=== PATIENT | male | born 2000 | race Caucasian/White ===

== ENCOUNTER 2025-01-16 17:42 | Emergency (ER) | payer OTHER, SELFPAY ==
[2025-01-16 17:49] VITALS: BP 120/68; PULSE 69; RESP 16; TEMP 36.3; O2SAT 99; BMI 25.2
--- NOTE | 2025-01-16 17:53 | ED_ITS ---
HPI - Skin/Abscess/Foreign Bdy General Time Seen by Provider: 17:54 Date Seen: 01/16/25 Chief complaint: Skin/Abscess/Foreign Body Stated complaint: Post op rash down R leg Time Seen by Provider: 01/16/25 17:53 Source: patient and RN notes reviewed Mode of arrival: ambulatory Limitations: no limitations History of Present Illness HPI narrative: This 24-year-old male is coming in with a rash only affecting his right lower extremity. He had a hamstring repair at [facility] with Dr. Frey on January 06. About 4 days ago he started having a rash on this right leg, it is very itchy. He just recently went back on hydroxyzine, taking 2 tablets up to every [address] Frey, he stated he could take the hydroxyzine or Benadryl. The swelling at the surgical site itself is much improved, he has right lower extremity swelling that is more notable now. He has not noted any fevers, no shortness of breath, no chest symptoms. He has a brace for this leg, uses a sleeve on his leg or has it over clothing like sweat pants. He otherwise is not putting any products on it. Related Data Home Medications ?Medication ?Instructions ?Recorded ?Confirmed hydroxyzine HCl 25 mg tablet 25 mg PO Q6-8H PRN 01/16/25 Allergies Allergy/AdvReac Type Severity Reaction Status Date / Time No Known Drug Allergies Allergy Verified 01/16/25 17:48 Review of Systems Narrative: As per HPI. PFSH PFS Social History Smoking Status: Never smoker How often do you have a drink containing alcohol: never AUDIT-C Alcohol total score: 0 Non-prescribed substance use: denies use Exam Const: Vital Signs, click to edit/add: Vital Signs - 24 hr 01/16/25 17:49 Temperature 97.4 F L Pulse Rate [Pulse Oximeter] 69 Respiratory Rate 16 Blood Pressure [Ri ght Upper Arm] 120/68 Pulse Oximetry 99 Oxygen Delivery Me thod Room Air 24-year-old male is alert, interactive, no apparent distress. He has a surgical wound with Steri-Strips right upper posterior leg, other underlying sutures, this area does not have any excessive erythema. The whole thigh and calf are swollen on this leg. His calf really is not tender when I palpate on the right. He has very prominent small pink to red raised areas that are small, circular, mm in diameter about 2-3, confluent from his right thigh down to his right leg/calf. These almost seem to follow the pattern of his follicles. Lungs are clear, good air entry, no wheezing or crackles, no tachypnea accessory muscle use. Speech is normal. CV regular rate and rhythm, no murmur. Skin on his left leg is unaffected, skin visualized elsewhere unaffected with rash. Documenting provider has reviewed patient's vital signs: yes Course Course ED Course: Reviewed with patient that would stand that something that only his right leg is coming in contact is causing this reaction. 1st and foremost in my mind would be reaction to skin prep but it is a bit delayed in time frame it would seem. His surgery was the 30 in this rash did not start to crop up until about 4 days ago. His roommate has Claritin at home, we discussed the use of adding in Claritin or Zyrtec twice a day for anti itching properties. With the swelling in a recent orthopedic surgery, did discuss ruling out DVT. I do think it would be prudent and will get a venous ultrasound ordered of this leg, he does agree. Will give him a dose of Claritin. Reevaluation(s) Time of Reevaluation #1: 19:43 Reevaluation #1: Reviewed with patient that the preliminary report per the seconds grader is no DVT. Will let him know if the radiologist has anything else additional once the formal read has come through, otherwise will plan to discharge at this time. Reviewed with patient that I cannot help but think that this is maybe some delayed type reaction to prep on the leg. It is only on the skin of the surgical leg. The rash is not anywhere else, he is aware that if it is starting to spread elsewhere that he needs re-evaluation. He did take Keflex and just completed that, again, doubt that this is reaction to Keflex and just 1 leg and no where else. He did ultimately declined the Zyrtec or Claritin here, states he is just going to take it at home as it is cheaper. I think that is fine. He and I discussed infection as an etiology. If he had cellulitis of this extent, would anticipate that he would be sick, febrile, flu carley. Patient's with lambert lulitis are generally ill. This is just an itchy rash with postsurgical swelling. We discussed using cool compresses or ice. I do also wonder if the edema of the leg itself could be giving him some follicular changes. The ?rash? seems to be smaller and not as apparent as your urticarial, almost looks more follicular. We certainly can make medication recommendations to help with the itching, hopefully with swelling going down, time way from the surgery, he will be improving. Vital Signs Vital signs: Initial Vital Signs Temperature 97.4 F L 01/16/25 17:49 Temperature Source Temporal Artery Scan 01/16/25 17:49 Pulse Rate 69 01/16/25 17:49 Pulse Rhythm Regular 01/16/25 17:49 Respiratory Rate 16 01/16/25 17:49 Blood Pressure 120/68 01/16/25 17:49 Blood Pressure Mean 85 01/16/25 17:49 Blood Pressure Position Sitting 01/16/25 17:49 Pulse Oximetry 99 01/16/25 17:49 Oxygen Delivery Method Room Air 01/16/25 17:49 Vital Signs Temperature 97.4 F L 01/16/25 17:49 Pulse Rate 69 01/16/25 17:49 Respiratory Rate 16 01/16/25 17:49 Blood Pressure 120/68 01/16/25 17:49 Pulse Oximetry 99 01/16/25 17:49 Oxygen Delivery Method Room Air 01/16/25 17:49 Temperature 97.4 F L 01/16/25 17:49 Pulse Rate 69 01/16/25 17:49 Respiratory Rate 16 01/16/25 17:49 Blood Pressure 120/68 01/16/25 17:49 Pulse Oximetry 99 01/16/25 17:49 Oxygen Delivery Method Room Air 01/16/25 17:49 Medications Administered Medications: Discontinued Medications Generic Name Dose Route Start Last Admin Trade Name Freq PRN Reason Stop Dose Admin Cetirizine HCl 10 mg 01/16/25 18:14 01/16/25 18:47 Cetirizine Hcl 10 Mg Tablet PO 01/16/25 18:15 Not Given DAILY ONE Loratadine 10 mg 01/16/25 18:15 01/16/25 18:38 Loratadine 10 Mg Tablet PO 01/16/25 18:16 10 mg DAILY ONE Administration MDM - Skin/Abscess/Foreign Bdy Imaging Data Venous US: Attestation: I have reviewed the pertinent imaging results. Radiologist's impression: Patient: LOTTIE FOSTER Facility:?[facility] Patient ID:?[id number] Site Patient ID:?[id number]. Site :?2002 Study:?US-Extremity Right Upper arm venous-01/16/2025 7:47:29 PM Ordering Physician:?Major Solomon Final Report: INDICATION: Swelling, recent hamstring repair TECHNIQUE: Venous duplex ultrasound of the right lower extremity utilizing compression with cummings-scale, color Doppler, and spectral Doppler imaging. COMPARISON: None FINDINGS: There is no sonographic evidence of deep vein thrombosis in the right common femoral, deep femoral, superficial femoral, popliteal, posterior tibial, peroneal, or contralateral common femoral veins. There is no visualized superficial vein thrombosis. The soft tissues are unremarkable. IMPRESSION: No deep vein thrombosis in the right lower extremity. Dictated by Darci Dominguez MD @ 01/16/2025 8:12:54 PM (Electronic Signature) Discharge Plan Discharge Clinical Impression: Swelling of right lower extremity, Rash Patient Disposition: Home, Self-Care Condition: Stable Instructions: Acute Rash (ED) Additional Instructions: Can take Claritin 10 mg twice a day to help with itching. You can continue with the hydroxyzine that you have, 25-50 mg every 6-8 hours as needed for itching. It is possible that this could be a delayed reaction to the prep or possibly coming from the swelling of the extremity itself. There was no evidence of DVT on the ultrasound, I will contact you if the radiologist has anything else additional once this is been formally read. I would try to elevate this leg as much as possible when you are resting. Can use ice packs or cool compresses, that can help decrease itching. If you note the rash is starting to spread elsewhere in your body, do recommend re-evaluation. Activity Detail: Continue with postoperative instructions per your surgeon. Prescriptions: No Action hydroxyzine HCl 25 mg tablet 25 mg PO Q6-8H PRN Follow Up/Referrals: Provider,Not a Local [Primary Care Provider, Family Practice] Stand Alone Forms: [facility] Info Instructions
--- NOTE | 2025-01-16 18:07 | CRLHL7_ITS ---
For Patients: As a result of the Cures Act, medical imaging exams and procedure reports are released immediately into your electronic medical record. You may view this report before your referring provider. If you have questions, please contact your health care provider. INDICATION: Swelling, recent hamstring repair TECHNIQUE: Venous duplex ultrasound of the right lower extremity utilizing compression with cummings-scale, color Doppler, and spectral Doppler imaging. COMPARISON: None FINDINGS: There is no sonographic evidence of deep vein thrombosis in the right common femoral, deep femoral, superficial femoral, popliteal, posterior tibial, peroneal, or contralateral common femoral veins. There is no visualized superficial vein thrombosis. The soft tissues are unremarkable. IMPRESSION: No deep vein thrombosis in the right lower extremity. Dictated by Darci Dominguez MD @ 01/16/2025 8:12:54 PM (Electronically Signed)
--- OUTSIDE RECORDS SUMMARY | 2025-01-16 18:24 | XMS_ITS | Clinical Summary ---
Author Organization [facility] Address [address] [place] [address] Care Team Providers Care Research Laboratory Technician Name Role Phone Angela Marmolejo Primary Care Provider Allergies No known active allergies Medications No known medications Active Problems No known active problems Social History Tobacco Use Types Packs/Day Years Used Date Smoking Tobacco: Never Smokeless Tobacco: Never Alcohol Use Standard Drinks/Week Comments Never 0 (1 standard drink = 0.6 oz pur e alcohol) Sex and Gender Information Value Date Recorded Sex Assigned at Male 05/07/2024 3:48 PM EST Legal Sex Male 1:21 PM EDT Gender Identity Male 05/07/2024 3:55 PM EST Sexual Orientation Not on file Last Filed Vital Signs Vital Sign Reading Time Taken Comments Blood Pressure 105/70 11/21/2018 7:15 PM EDT Pulse 52 11/21/2018 7:15 PM EDT Temperature 36.8 C (98.2 F) 11/21/2018 7:15 PM EDT Respiratory Rate 16 11/21/2018 7:15 PM EDT Oxygen Saturation 100% 11/21/2018 7:15 PM EDT Inhaled Oxygen Concentration - - Weight - - Height - - Body Mass Index - - Plan of Treatment Health Maintenance Due Date Last Done Comments HIV Screening 2002 Hepatitis C Screening 2002 Alcohol/Substance Use Screening 03/10/2024 Depression Screening and Follow-Up 03/10/2024 Social Drivers of Health Leela ual Screening 03/10/2024 DTaP,Tdap,and Td Vaccines (7 - Td or Tdap) 10/27/2024 10/27/2014, 03/17/2008, 03/16/2004, Additional history exists COVID-19 Vaccine (5 - 2024-2 6 season) 2024 02/28/2022, 10/03/2021, 07/31/2020, Additional history exists Influenza Vaccine (#1) 2024 2, 11/18/2019, 04/03/2019, Additional history exists RSV Vaccine (60+ years old a nd patients) (1 - 1-dose 75+ series) 2077 Hepatitis B Vaccines Completed 10/19/2003, 01/12/2003, 2002 Pneumococcal Vaccine: Pediat jarocho (0-5 Years) and At-Risk Patients (6-50 Years) Completed 12/12/2003, 10/19/2003, 04/15/2003, Additional history exists Varicella Vaccines Completed 03/17/2008, 12/12/2003 HPV Vaccines Completed 09/06/2019, 11/29/2016 Meningococcal Vaccine Completed 11/18/2019, 017 [place] [id number] [place] [id number] Care Teams Research Laboratory Technician Relationship Specialty Start Date End Date Angela Marmolejo [address] [place] [phone] PCP - General Pediatrics 11/21/18
--- OUTSIDE RECORDS SUMMARY | 2025-01-16 18:24 | XMS_ITS | Clinical Summary ---
Author Organization [facility] Address [address] [place] [address] Care Team Providers Care Ship Boss Name Role Phone Chuck Sosa MD Primary Care Provider Allergies No known active allergies Immunizations Immunization Administration Dates Next Due DTaP 03/17/2008, 5,06/17/2003,2003,02/21/2003 Hep B (pedi) 10/19/2003,01/12/2003,2002 Hib - 03/16/2004, 4,04/15/2003,2002 IPV 03/17/2008, 5,04/15/2003,2002 Influenza,live,intranasal,tr ivalent (Flumist) 02/03/2013,03/23/2010,01/24/2008 MMR 03/17/2008,03/16/2004 PCV-7 12/12/2003, 4,04/15/2003,2002 Tdap(Adacel) 10/27/2014 Varicella 03/17/2008,12/12/2003 Social History Tobacco Use Types Packs/Day Years Used Date Smoking Tobacco: Never Assessed Sex and Gender Information Value Date Recorded Sex Assigned at Not on file Legal Sex Male 2:26 PM EDT Gender Identity Not on file Sexual Orientation Not on file Last Filed Vital Signs Vital Sign Reading Time Taken Comments Blood Pressure - - Pulse - - Temperature - - Respiratory Rate - - Oxygen Saturation - - Inhaled Oxygen Concentration - - Weight 56.7 kg (125 lb) 11/02/2015 9:24 AM EDT Height 162.6 cm (5' 4) 11/02/2015 9:24 AM EDT Body Mass Index 21.46 11/02/2015 9:24 AM EDT Plan of Treatment Health Maintenance Due Date Last Done Comments Hepatitis C Screening 2002 HPV Vaccine (1 - Male 3-dose series) 2017 DTaP/Tdap/Td (7 - Td or Tdap) 10/27/2024 10/27/2014, 03/17/2008, 03/16/2004, Additional history exists COVID-19 Vaccine ( - season) 2024 Influenza (#1) 2024 02/03/2013, 03/10, 01/24/2008 Zoster (Shingrix) (1 of 2) 2052 03/17/2008, Hep B Completed 10/19/2003, 07/2002, 2002 Pneumococcal Aged Out 12/12/2003, 10/08, 04/15/2003, Additional history exists No longer eligible based on patient's age to complete this topic Hib Completed 03/16/2004, 11/2003, 04/15/2003, Additional history exists Hep A Aged Out No longer eligi ble based on patient's age to complete this topic Meningococcal ACWY Aged Out No longer eligible based on patient's age to complete this topic Care Teams Ship Boss Relationship Specialty Start Date End Date Chuck Sosa MD [address] [place] [id number] PCP - General Family Medicine 08/09/16
--- OUTSIDE RECORDS SUMMARY | 2025-01-16 18:24 | XMS_ITS | Clinical Summary ---
Author Organization [facility] Address [address] [place] [address] Phone Care Team Providers Care Assistant Bookkeeper Name Role Phone Angela Marmolejo MD Primary Care Provider [phone] Chiara Reyna MD Unavailable [phone] Allergies No known active allergies Medications clindamycin (CLEOCIN T) 1 % lotionIndicatio ns:Acne vulgaris Apply a thin amount to entire face twice daily 60 mL 3 09/06/2024 Active tretinoin (RETIN-A) 0.05 % creamIndication s:Acne vulgaris APPLY TO SKIN EVERY NIGHT DIRECTED APPLY A PEA-SIZE AMOUNT TO FACE DAILY. 45 g 3 09/06/2024 Active Active Problems Problem Noted Date Diagnosed Date Acne vulgaris 03/09/2019 08/12/2022 Social History Tobacco Use Types Packs/Day Years Used Date Smoking Tobacco: Never Assessed Education Answer Date Recorded Are you interested in more education? Not on jose a e 07/07/2022 Are you concerned about learning? Not on file 07/07/2022 No 07/07/2022 No 07/07/2022 Digital Access Answer Date Recorded No 08/04/2022 No 08/04/2022 No 08/04/2022 Reliable internet access at home? Not on file 08/04/2022 Device with a working camera? Not on file Sex and Gender Information Value Date Recorded Sex Assigned at Not on file Legal Sex Male 8:59 PM EST Gender Identity Not on file Sexual Orientation Not on file Plan of Treatment Upcoming Encounters Date Type Department Care Team (Ross st Contact Info) Description 09/12/2025 1:00 PM EDT [facility] [address] [place] [address] Dinora Dolan PA-C [address] [place] [address] [email or web address] Maintenance Due Date Last Done Comments DEPRESSION SCREENING 2014 SMOKING Hx and SMOKELESS TOBACCO SCREENING 12/11/2015 MENINGOCOCCAL VACCINES (B) (1 of 2 - Standard) 2018 HPV VACCINES (2 - Male 3-dose series) 10/04/2019 09/06/2019 HEPATITIS C SCREENING 2020 HIV ONE-TIME SCREENING (18-65 YEARS) 2020 INFLUENZA VACCINE (#1) 2024 0, 04/03/2019, 12/11/2017, Additional history exists Adult Td,Tdap Booster 10/27/2024 10/27/2014 COVID-19 VACCINE ( season) 2024 07/09/2020 IPV VACCINES Completed 03/17/2008, 06/08, 04/15/2003, Additional history exists MENINGOCOCCAL VACCINES (ACWY) Completed 11/18/2019 HEPATITIS A VACCINES Aged Out No long er eligible based on patient's age to complete this topic HIB VACCINES Aged Out No longer eligi ble based on patient's age to complete this topic PNEUMOCOCCAL VACCINES (0-49 years) Aged Out No longer eligible based on patient's age to complete this topic Medical Devices Not on file Insurance [facility] [employer] Care Teams Assistant Bookkeeper Relationship Specialty Start Date End Date Angela Marmolejo MD [address] [place] [phone] PCP - General 08/19/22 Chiara Reyna MD [address] [place] [id number] [email or web address] 08/19/22 Additional Source Comments The information contained in this document represents components of the legal health record. It is not the complete legal health record.[facility]
--- OUTSIDE RECORDS SUMMARY | 2025-01-16 18:25 | XMS_ITS | Clinical Summary ---
Author Organization [facility] Address [address] [place] [phone] Phone Care Team Providers Care Camera Repairer Name Role Phone Angela Marmolejo MD Primary Care Provider [phone] Allergies No known active allergies Medications clindamycin 1 % lotion APPLY A THIN LAYER TO FACE TWICE A DAY 2 06/03/2019 Active tretinoin 0.05 % cream APPLY PEA SIZED AMOUNT TO ENTIRE FACE AT BEDTIME DIRECTED 03/13/2020 Active Active Problems No known active problems Immunizations Immunization Administration Dates Next Due DTaP 03/17/2008, 5,06/17/2003,06/16,04/15/2003,04/15/2003,02/21/2003 ,02/21/2003 DTaP / HiB 03/16/2004 H1N1 Nasal 12/28/2008 HPV Vaccine 9 Valent 09/06/2019,11/29/2016 Hep B, ped/adol 10/19/2003, 4,01/12/2003,01/12,2002,2002 Hib (HbOC) 03/16/2004, 4,04/15/2003,02/21 Hib (PRP-T) 06/17/2003,04/15/2003,02/21/2003 IPV 03/17/2008, 5,06/22/2004,04/15,04/15/2003,02/21/2003,02/21/2003 Influenza 12/12/2004 Influenza, injectable, MDCK, preservative free, quadrivalent 02/28/2022 Influenza, injectable, quadr ivalent, preservative free 11/18/2019,04/03/2019,12/11/2017,03/27 Influenza, injectable, trivalent 01/03/2006,12/09,12/12/2004 Influenza, intranasal, quadrivalent 01/23/2015 Influenza, intranasal, trivalent 02/03/2013,03/10,01/24/2008 MMR 03/17/2008,03/16/2004,03/16/2004 Meningococcal B Bexsero 09/24/2021,08/22/2021 Meningococcal Conj (Menactra) MCV4P 11/18/2019,0 11/29/2016 Pneumococcal Conjugate 12/12/2003,2003,10/19/2003,10/18,04/15/2003,04/15/2003,02/21/2003 ,02/21/2003 Tdap 10/27/2014 Varicella 03/17/2008,12/12/2003,12/12/2003 Social History Tobacco Use Types Packs/Day Years Used Date Smoking Tobacco: Never Assessed Hunger/Food Answer Date Recorded In the last 12 months, did y ou or your family ever eat less than you felt you should because there wasn't enough money for food? No 05/11/2024 Stable Housing Answer Date Recorded Are you worried that in the next 2 months you may not have stable housing? No 05/11/2024 Transportation Concerns Answer Date Rec orded In the last 12 months, have you or your family ever had to go without healthcare because you didn't have a way to get there? No 05/11/2024 Hazards in Home Answer Date Recorded Think about the place you li ve. Do you have problems with any of the following? Pests (mice or roaches), mold, no/not working smoke detectors, water leaks, no window guards. No 2024 Financing Utilities Answer Date Recorde d In the last 12 months, has t he electric, gas, oil, or water company threatened to shut off your services in your home? No 05/11/2024 Safety at Home Answer Date Recorded Are you or your family worried about feeling saf e in your home? No 05/11/2024 Outside Support Answer Date Recorded Do you feel that you need mo re support from other people or programs to help you care for yourself or your family? No 05/11/2024 Understanding Health Concerns Answer Da te Recorded Do you need help understandi ng your or your child's healthcare needs (diagnosis, medications, plan, etc.)? No 05/11/2024 Financing Health Concerns Answer Date R ecorded In the last 12 months, was t here a time when your child needed to see a doctor or get medications or supplies but could not because of cost? No 05/11/2024 Missing School or Work Answer Date Garret rded Did you or your child miss s chool or work because of a health problem that could have been avoided? No 05/11/2024 Child Education Answer Date Recorded Do you have concerns about y our/your child's learning or behavior in school, preschool, or daycare? No 05/11/2024 Sex and Gender Information Value Date Recorded Sex Assigned at Not on file Legal Sex Male 8:48 PM EST Gender Identity Not on file Sexual Orientation Straight 08/22/2021 10 :45 AM EDT Last Filed Vital Signs Vital Sign Reading Time Taken Comments Blood Pressure 118/72 05/11/2024 11:09 AM EST Pulse 70 05/11/2024 11:09 AM EST Temperature 36.8 C (98.3 F) 02/25/2024 3:47 PM EST Respiratory Rate 20 02/25/2024 3:47 PM EST Oxygen Saturation 99% 02/25/2024 3:47 PM EST Inhaled Oxygen Concentration - - Weight 88 kg (194 lb) 09/14/2024 8:37 AM EDT Height 181.3 cm (5' 11.38) 05/11/2024 11:09 AM EST Body Mass Index 26.77 05/11/2024 11:09 AM EST Plan of Treatment Health Maintenance Due Date Last Done Comments Influenza Vaccines (#1) 2024 02/29/20, 11/18/2019, 04/03/2019, Additional history exists DTaP,Tdap,and Td Vaccines (7 - Td or Tdap) 10/27/2024 10/27/2014, 03/17/2008, 03/16/2004, Additional history exists COVID-19 Vaccine ( - season) 2024 02/28/2022, 10/03/2021, 07/31/2020, Additional history exists Hepatitis B Vaccines Completed 10/19/2003, 10/19/2003, 01/12/2003, Additional history exists Pneumococcal Vaccine Completed 12/12/2003, 12/12/2003, 10/19/2003, Additional history exists HIB Vaccines Completed 03/16/2004, 09/2004, 06/17/2003, Additional history exists IPV Vaccines Completed 03/17/2008, 06/08, 06/22/2004, Additional history exists MMR Vaccines Completed 03/17/2008, 09/2004, 03/16/2004 Varicella Vaccines Completed 03/17/2008, 1 , 12/12/2003 HPV Vaccines Completed 09/06/2019, 11/29/2016 Meningococcal Vaccine Completed 11/18/2019, 017 Men B Vaccine Completed 09/24/2021, 08/22/2021 Hepatitis A Vaccines Aged Out No long er eligible based on patient's age to complete this topic Insurance [facility] Care Teams Camera Repairer Relationship Specialty Start Date End Date Angela Marmolejo MD [address] [place] [phone] PCP - General 04/30/16
--- OUTSIDE RECORDS SUMMARY | 2025-01-16 18:25 | XMS_ITS | Encounter Summary ---
Author Organization [facility] Address [address] [place], [place] [phone] Phone Care Team Providers Care Rn Transport Name Role Phone Angeal Marmolejo MD Primary Care Provider [phone] Encounter Details Date Type Department Care Team (Late st Contact Info) Description 10/16/2016 Conversion Encounter [facility] [address] [place] [phone] Angela Marmolejo MD [address] [place] [phone] Social History Tobacco Use Types Packs/Day Years Used Date Smoking Tobacco: Never Assessed Sex and Gender Information Value Date Recorded Sex Assigned at Not on file Legal Sex Male 8:48 PM EST Gender Identity Not on file Sexual Orientation Straight 08/22/2021 10 :45 AM EDT documented as of this encounter Plan of Treatment Not on file documented as of this encounter Visit Diagnoses Not on filedocumented in this encounter Care Teams Rn Transport Relationship Specialty Start Date End Date Angela Marmolejo MD [address] [place] [phone] PCP - General 04/30/16 documented as of this encounter
--- OUTSIDE RECORDS SUMMARY | 2025-01-16 18:25 | XMS_ITS | Patient Health Record ---
Author Organization [facility] Address [address] [facility] [address] [place] [address] Care Team Providers Care Permastone Mechanic Name Role Phone Angela Marmolejo MD Primary Care Provider EARLINE Horne Unavailable [phone] Allergies No Known Allergies Reason For Referral No Information Social History Tobacco Use: Social History Observation Description Date Details (start date - stop date) Never Smoker NA - NA Tobacco Use/Smoking Question Answer Notes Are you a nonsmoker Problems Problem Type SNOMED Code ICD Code Onset Dates Problem Status W/U Status Risk Notes Problem Enthesopathy of ankle AND/OR tarsus (45431556) Osteophyte , right foot (M25.774) Active confirmed Problem Ankle pain (347788591) Ankle pain (M25.579) Active confirmed Problem Pain in limb (26863953) Foot pain, right (M79.671) Active confirmed Plan Of Treatment No Information Insurance Providers Payer Name Payer Address Payer Phone Subscriber Number Group Number Insured Name Patient Relationship to Insured Coverage Start Date Coverage End Date [address] [place] [address] [phone] [id number] KRISTINLOTTIE Self - patient is the insured Medical (General) History Medical History History ICD Code He relates is been ongoing f or 8 weeks duration. Gradually developed over time. Describes as aching discomfort. States the pain level at its worst is a 7. Has stayed the same. Daily activities seem to make it feel worse as well as playing basketball and and football. As a child never injured it during soccer. He tends to wear ankle braces on his ankles.
--- OUTSIDE RECORDS SUMMARY | 2025-01-16 18:25 | XMS_ITS | Encounter Summary ---
Author Organization [facility] Address [address] [place], [place] [id number] Phone Care Team Providers Care Telegraph Plant Maintainer Name Role Phone Angela Marmolejo MD Primary Care Provider [phone] Encounter Details Date Type Department Care Team (Late st Contact Info) Description 01/20/2017 Conversion Encounter [facility] [address] [place] [address] Felice Nathan MD [address] [place] [address] Social History Tobacco Use Types Packs/Day Years [...] on filedocumented in this encounter Care Teams Telegraph Plant Maintainer Relationship Specialty Start Date End Date Angela Marmolejo MD [address] [place] [id number] PCP - General 04/30/16 documented as of this encounter
--- OUTSIDE RECORDS SUMMARY | 2025-01-16 18:25 | XMS_ITS | Clinical Summary ---
Author Organization [facility] Address [address] [place] [id number] Care Team Providers Care Facility Coordinator Name Role Phone Pcp, No Primary Care Provider Unavailabl e Allergies No known active allergies Medications clindamycin 1% (CLEOCIN-T) 1 % lotion APPLY TO SKIN TWICE A DAY APPLY A THIN AMOUNT TO FACE TWICE DAILY. 10/29/2021 Active tretinoin 0.05 % 0.05 % cream APPLY TO SKIN EVERY NIGHT DIRECTED APPLY A PEA-SIZE AMOUNT TO FACE DAILY. 08/13/2021 Active Active Problems Problem Noted Date Diagnosed Date Tear of right hamstring 12/28/2024 Resolved Problems Problem Noted Date Diagnosed Date Resolved Date Osteophyte, right foot 12/28/202412/28 Encounters Date Type Department Care Team Description 12/28/2024 2:35 PM CDT Office Visit [facility] [address] [place] [address] Tammie Mock MD Pre-Op Exam (01/06 [facility]) 12/28/2024 Travel 12/21/2024 8:00 AM CDT Ancillary Procedure [facility] [address] [facility] [address] [place] [address] 12/21/2024 Telephone [facility] [address] [facility] [place] [address] Matthew Isaac MD Questions (MRI results) 12/20/2024 11:00 AM CDT Office Visit [facility] [address] [facility] [place] [address] Matthew Isaac MD Consult (Rt hamstring injury, 12/18/24) 12/20/2024 10:00 AM CDT Ancillary Procedure [facility] [address] [place] [address] 12/20/2024 Travel from Last 3 Months Social History Tobacco Use Types Packs/Day Years Used Date Smoking Tobacco: Never Smokeless Tobacco: Never Tobacco Cessation:Counseling Given: Yes Alcohol Use Standard Drinks/Week Comments Yes 0 (1 standard drink = 0.6 oz pur e alcohol) 4 beers weekly Alcohol Use Answer Date Recorded How often do you have a drink containing alcohol ? 2 12/20/2024 How many drinks containing a lcohol do you have on a typical day when you are drinking? 1 12/20/2024 How often do you have five or more drinks on one occasion? 1 12/20/2024 Sex and Gender Information Value Date Recorded Sex Assigned at Not on file Legal Sex Male 3:32 PM CDT Gender Identity Not on file Sexual Orientation Not on file Obstetrics History Last Filed Vital Signs Vital Sign Reading Time Taken Comments Blood Pressure 120/77 12/28/2024 2:31 PM CDT Pulse 185 12/28/2024 2:31 PM CDT Temperature 36.8 C (98.2 F) 01/20/2023 2:29 PM [employer]ER Respiratory Rate 18 11/30/2022 2:59 PM CDT Oxygen Saturation 97% 12/28/2024 2:31 PM CDT Inhaled Oxygen Concentration - - Weight 90.6 kg (199 lb 11.2 oz) 12/28/2024 2:31 PM CDT Height 182.3 cm (5' 11.76) 12/28/2024 2:31 PM C DT Body Mass Index 27.27 12/28/2024 2:31 PM CDT Plan of Treatment Health Maintenance Due Date Last Done Comments Tetanus booster 2013 Depression screening for age 12+ 2014 HIV for age 15-65 2017 HPV series for age 9-45 (1 - Male 3-dose series) 2017 Hepatitis C screening for ag e 18-79 2020 Hepatitis B series for 19+ ( 1 of 3 - 19+ 3-dose series) 2021 Influenza Vaccine (#1) 2024 BMI (ht and wt on same day) for age 18+ 12/28/2025 12/28/2024, 12/09/2022 RSV vaccine for adults or (1 - 1-dose 75+ series) 2077 Pneumococcal series for age 6-49 Aged Out No longer eligible b ased on patient's age to complete this topic Procedures Procedure Name Priority Date/Time Associated Diagnosis Comments MR FEMUR RIGHT WO Routine 12/21/2024 8:5 4 AM CDT Hamstring strain, right, initial encounter Right thigh pain XR HIP 1 VIEW W PELVIS RIGHT Routine 12/20/2024 10:31 AM CDT Hamstring strain, right, initial encounter from Last 3 Months Results * MR FEMUR RIGHT WO (12/21/2024 8:54 AM CDT) Anatomical Region Laterality Modality FEMUR R, LEG R Magnetic Resonan ce 12/21/2024 12:5 6 PM CDT Impressions 12/21/2024 12:56 PM CDT 1. Full-thickness tear of the long head of the biceps femoris tendon from the ischial tuberosity with mild proximal retraction. 2. Full-thickness tear of the proximal myotendinous junction of the semi tendinosis with adjacent muscle strain. 3. The proximal semimembranosus tendon is intact. 4. Tear in the right tensor fascia katey musculature with adjacent muscle strain. 5. Deep posterior subcutaneous edema adjacent to the proximal hamstring musculature and mild subcutaneous edema in the lateral thigh. Dictated by Matthew Stallings MD @ 12/21/2024 12:56:07 PM (Electronically Signed) Narrative 12/21/2024 12:56 PM CDT For Patients: As a result of the Century Cures Act, medical imaging exams and procedure reports are released immediately into your electronic medical record. You may view this report before your referring provider. If you have questions, please contact your health care provider. EXAM: MRI OF THE RIGHT FEMUR, WITHOUT CONTRAST CLINICAL INDICATION: Right-sided hamstring pain following recent injury. COMPARISON PLAIN FILMS: 12/20/2024. COMPARISON CROSS-SECTIONAL IMAGING STUDIES: None. TECHNICAL: Axial, sagittal and coronal T1 and STIR images. FINDINGS: MUSCLES AND TENDONS: Full-thickness tear of the long head of the biceps femoris from the ischial tuberosity with 2 cm of proximal retraction. Mild thickening and redundancy of the retracted tendon. There is a full-thickness tear of the proximal myotendinous junction of the semitendinosis with moderate edema in the proximal semitendinosis musculature consistent with muscle strain. The semimembranosus tendon is intact. Small amount of fluid and edema in the distal aspect of the right tensor fascia katey musculature consistent with a small muscle tear and adjacent muscle strain. No intramuscular hematomas. No muscular atrophy. OSSEOUS STRUCTURES: No fracture, bone marrow contusion, stress change or marrow replacement process. No periosteal edema/reaction. SOFT TISSUES: Mild subcutaneous edema along the deep portion of the proximal hamstring musculature and fascia. Mild subcutaneous edema in the proximal lateral thigh. No subcutaneous hematoma. Procedure Note Matthew Stallings MD - 12/21/2024 For Patients: As a result of the Cures Act, medical imagingexams and procedure reports are released immediately into your electronicmedical record. You may view this report before your referring provider.If you have questions, please contact your health care provider. EXAM: MRI OF THE RIGHT FEMUR, WITHOUT CONTRAST CLINICAL INDICATION: Right-sided hamstring pain following recent injury. COMPARISON PLAIN FILMS: 12/20/2024. COMPARISON CROSS-SECTIONAL IMAGING STUDIES: None. TECHNICAL: Axial, sagittal and coronal T1 and STIR images. FINDINGS: MUSCLES AND TENDONS: Full-thickness tear of the long head of the biceps femoris from theischial tuberosity with 2 cm of proximal retraction. Mild thickening andredundancy of the retracted tendon. There is a full-thickness tear of theproximal myotendinous junction of the semitendinosis with moderate edemain the proximal semitendinosis musculature consistent with muscle strain.The semimembranosus tendon is intact. Small amount of fluid and edema inthe distal aspect of the right tensor fascia katey musculature consistentwith a small muscle tear and adjacent muscle strain. No intramuscularhematomas. No muscular atrophy. OSSEOUS STRUCTURES: No fracture, bone marrow contusion, stress change or marrow replacementprocess. No periosteal edema/reaction. SOFT TISSUES: Mild subcutaneous edema along the deep portion of the proximal hamstringmusculature and fascia. Mild subcutaneous edema in the proximal lateralthigh. No subcutaneous hematoma. IMPRESSION: 1. Full-thickness tear of the long head of the biceps femoris tendon fromthe ischial tuberosity with mild proximal retraction. 2. Full-thickness tear of the proximal myotendinous junction of the semitendinosis with adjacent muscle strain. 3. The proximal semimembranosus tendon is intact. 4. Tear in the right tensor fascia katey musculature with adjacent musclestrain. 5. Deep posterior subcutaneous edema adjacent to the proximal hamstringmusculature and mild subcutaneous edema in the lateral thigh. Dictated by Matthew Stallings MD @ 12/21/2024 12:56:07 PM (Electronically Signed) us Matthew Isaac MD MR Final Resu lt * XR HIP 1 VIEW W PELVIS RIGHT (12/20/2024 10:31 AM CDT) Anatomical Region Laterality Modality HIPS, HIPR, Pelvis Computed Radi ography 12/20/2024 3:03 PM CDT Impressions 12/20/2024 3:03 PM CDT 1. No acute osseous injuries are noted. Dictated by: Eyad Montes MD @ 12/20/2024 15:03:14 (Electronically Signed) Narrative 12/20/2024 3:03 PM CDT For Patients: As a result of the Cures Act, medical imaging exams and procedure reports are released immediately into your electronic medical record. You may view this report before your referring provider. If you have questions, please contact your health care provider. INDICATION: Hamstring strain, right TECHNIQUE: Pelvis radiograph, Hip radiograph 2 views right COMPARISON: None FINDINGS: Bone: No acute fractures or aggressive bone lesions are identified. Joint: The hip joints are unremarkable. The visualized sacroiliac joints are unremarkable in appearance. The pubic symphysis is normal in appearance. Soft tissue: Unremarkable. No radiopaque foreign bodies are seen. Procedure Note Eyad Montes MD - 12/20/2024 For Patients: As a result of the 21st Century Cures Act, medical imagingexams and procedure reports are released immediately into your electronicmedical record. You may view this report before your referring provider.If you have questions, please contact your health care provider. INDICATION: Hamstring strain, right TECHNIQUE: Pelvis radiograph, Hip radiograph 2 views right COMPARISON: None FINDINGS: Bone: No acute fractures or aggressive bone lesions are identified. Joint: The hip joints are unremarkable. The visualized sacroiliac jointsare unremarkable in appearance. The pubic symphysis is normal inappearance. Soft tissue: Unremarkable. No radiopaque foreign bodies are seen. IMPRESSION: 1. No acute osseous injuries are noted. Dictated by: Eyad Montes MD @ 12/20/2024 15:03:14 (Electronically Signed) Matthew Isaac MD GENERAL IMAGING Final Resu lt from Last 3 Months Insurance [facility] Care Teams Facility Coordinator Relationship Specialty Start Date End Date Pcp, No . PCP - General 01/23/22
[2025-01-16] MEDS: LORATADINE 10 MG TABLET PO (18:38)
== END 2025-01-16 19:58 | disposition home or self-care (01) ==
PROVIDERS: Emergency Provider Family Medicine
DX: R21 Rash and other nonspecific skin eruption (principal); M79.89 Other specified soft tissue disorders; Z98.890 Other specified postprocedural states
CPT/HCPCS: 93971; 99283; 99284